=== PATIENT | female | born 1955 | race Caucasian/White ===

== ENCOUNTER → 2017-03-23 | Outpatient (CLI) | payer SELFPAY | LOC: COL.VAS 03-20 13:15 | DX: Z01.818 Encounter for other preprocedural examination (principal); Z88.2 Allergy status to sulfonamides; Z88.8 Allergy status to other drugs, medicaments and biological substances | CPT/HCPCS: G0365 ==

== ENCOUNTER → 2017-03-30 | Outpatient (REF) ==
[2017-03-30 07:48] LABS: CALCIUM 9.2 mg/dL (8.4-10.2); CREATININE, serum 3.14 mg/dL (0.52-1.25); POTASSIUM 4.6 mmol/L (3.4-5.0)
== END ==
LOC: ZMSC 07:35
PROVIDERS: Surgery
DX: Z01.89 Encounter for other specified special examinations (principal)

== ENCOUNTER 2017-06-13 10:03 | Outpatient (CLI) | payer OTHER ==
[~2017-06-13] VITALS: Ht 157.5 cm; Wt 53.6 kg
[2017-06-13] MEDS ORDERED: NORVASC 5MG5 MG/TAB PO (10:29)
[2017-06-13] MEDS ORDERED: RENA-VITE1 TAB PO (10:31)
[2017-06-13] MEDS ORDERED: NEURONTIN100 MG/CAP PO (10:32)
[2017-06-13] MEDS ORDERED: NORCO 325 MG-51 TAB PO (10:33)
[2017-06-13] MEDS ORDERED: LANTUS100 U/ML SQ (10:34)
[2017-06-13] MEDS ORDERED: HUMALOG100 U/ML SQ (10:35)
[2017-06-13 10:48] VITALS: BP 141/73; PULSE 68; TEMP 97.4
[2017-06-13 12:35] VITALS: BP 144/80; PULSE 69
[2017-06-13 13:30] VITALS: BP 125/72; PULSE 63; TEMP 97.6
[2017-06-13 14:08] VITALS: BP 142/73; PULSE 62; TEMP 97.6
== END 2017-06-13 14:25 | disposition home or self-care (01) ==
LOC: COL.CAR 10:03
DX: E11.22 Type 2 diabetes mellitus with diabetic chronic kidney disease (principal); N18.6 End stage renal disease; N12 Tubulo-interstitial nephritis, not specified as acute or chronic; D64.9 Anemia, unspecified; E87.1 Hypo-osmolality and hyponatremia; Z90.710 Acquired absence of both cervix and uterus; Z90.49 Acquired absence of other specified parts of digestive tract
CPT/HCPCS: J2250; J3010; Q9967

== ENCOUNTER → 2017-08-03 | Outpatient (CLI) | payer OTHER ==
[~2017-08-03] MED LIST: HUMALOG100 U/ML SQ; LANTUS100 U/ML SQ; NEURONTIN100 MG/CAP PO; NORCO 325 MG-51 TAB PO; NORVASC 5MG5 MG/TAB PO; RENA-VITE1 TAB PO
== END ==
LOC: COL.VAS 10:47
DX: N18.6 End stage renal disease (principal); T82.590A Other mechanical complication of surgically created arteriovenous fistula, initial encounter
CPT/HCPCS: G0365

== ENCOUNTER 2017-08-29 10:36 | Day surgery (SDC) | payer OTHER ==
[2017-08-29] VITALS (10 sets, daily range): BP systolic 101–154; BP diastolic 48–73; PULSE 49–76; TEMP 98.1
[~2017-08-29] VITALS: Ht 157.5 cm; Wt 53.7 kg
[~2017-08-29 10:36] MED LIST changes: +HUMALOG100 U/ML; -HUMALOG100 U/ML SQ
[2017-08-29] MEDS ORDERED: ROBINUL FORTE2 MG PO (11:00)
[2017-08-29] MEDS ORDERED: LASIX 40MG TABL40 MG PO (11:01)
[2017-08-29 11:40] LABS: CREATININE, serum 3.84 mg/dL (0.52-1.25); POTASSIUM 4.8 mmol/L (3.4-5.0)
[2017-08-29] MEDS ORDERED: NORCO 325 MG-51 TAB PO (14:58)
== END 2017-08-29 16:14 | disposition home or self-care (01) ==
LOC: SDCO 10:36
PROVIDERS: Surgery
DX: E11.22 Type 2 diabetes mellitus with diabetic chronic kidney disease (principal); I12.0 Hypertensive chronic kidney disease with stage 5 chronic kidney disease or end stage renal disease; N18.6 End stage renal disease; Z79.4 Long term (current) use of insulin; Z79.899 Other long term (current) drug therapy; Z79.82 Long term (current) use of aspirin
CPT/HCPCS: J0690; J1644; J2704; J3010

== ENCOUNTER 2017-12-21 20:29 | Inpatient (IN) | payer MEDICARE, OTHER ==
[~2017-12-21] VITALS: Ht 154.9 cm; Wt 58.0 kg
[~2017-12-21 20:29] MED LIST changes: +LASIX 40MG TABL40 MG PO; +ROBINUL FORTE2 MG PO
[2017-12-21 21:22] LABS: BASO % 0.2 % (0.0-2.0); EOS # 0.1 (0.0-0.7); EOS % 1.4 % (0-4.0); GRAN # 7.4 (1.4-6.5); GRAN % 87.8 % (42.2-75.2); LYMPH # 0.6 (1.2-3.4); LYMPH % 6.6 % (20.0-51.0); MEAN CELL VOLUME 98 fl (80.0-100.0); MEAN CORPUSCULAR HGB CONC 34 g/dl (33.0-37.0); MEAN PLATELET VOLUME 9.5 fl (7.4-10.4); MONO # 0.3 (0.1-0.6); MONO % 3.4 % (1.7-9.3); PLATELET COUNT 229 K/mm3 (130-400); RED BLOOD COUNT 2.08 M/mm3 (4.10-5.30); REDCELL DISTRIBUTION WIDTH-CV 14.9 % (11.5-14.5)
[2017-12-21 21:26] LABS: HEMATOCRIT 20.4 % (37.0-47.0); MEAN CORPUSCULAR HEMOGLOBIN 34 pg (27.0-31.0)
[2017-12-21 21:31] LABS: ALBUMIN 4.1 gm/dL (3.5-5.0); BILIRUBIN,TOTAL 0.3 mg/dL (0.0-1.0); CALCIUM 7.9 mg/dL (8.4-10.2); MAGNESIUM 2.1 mg/dL (1.6-2.3); PHOSPHOROUS 3.9 mg/dL (2.5-4.5); POTASSIUM 4.2 mmol/L (3.4-5.0); TOTAL PROTEIN 7.6 gm/dL (6.4-8.2)
[2017-12-21 21:43] LABS: CREATININE, serum 4.09 mg/dL (0.52-1.25); TROPONIN-I 0.046 ng/mL (0.000-0.034)
[2017-12-21 21:52] LABS: COLLECTION METHOD CATHETER
[2017-12-21 22:06] LABS: PH 7 (5-8); SQUAMOUS EPITHELIAL None Seen /hpf; URINE APPEARANCE Clear; URINE BACTERIA None Seen /hpf; URINE BILIRUBIN Negative (NEGATIVE); URINE BLOOD 1+ (NEGATIVE); URINE COLOR Yellow; URINE GLUCOSE 1+ (NEGATIVE); URINE KETONE Negative (NEGATIVE); URINE LEUKOCYTE ESTERASE 1+ (NEGATIVE); URINE NITRATE Negative (NEGATIVE); URINE PROTEIN(semi-quant) 3+ (NEGATIVE); URINE RBC 0-2 /hpf; URINE UROBILINOGEN Negative (NEGATIVE)
[2017-12-21 23:09] VITALS: BP 156/70; PULSE 93; TEMP 98.3
[2017-12-22] VITALS (7 sets, daily range): BP systolic 165–188; BP diastolic 64–76; PULSE 74–80; TEMP 98.5–98.8
[2017-12-22 08:28] LABS: BASO % 0.2 % (0.0-2.0); EOS # 0.2 (0.0-0.7); EOS % 2.5 % (0-4.0); GRAN # 6.4 (1.4-6.5); GRAN % 76.4 % (42.2-75.2); HEMATOCRIT 24.5 % (37.0-47.0); HEMOGLOBIN 8.3 g/dl (12.5-16.0); LYMPH # 1.3 (1.2-3.4); LYMPH % 15.6 % (20.0-51.0); MEAN CELL VOLUME 95 fl (80.0-100.0); MEAN CORPUSCULAR HEMOGLOBIN 32 pg (27.0-31.0); MEAN CORPUSCULAR HGB CONC 34 g/dl (33.0-37.0); MEAN PLATELET VOLUME 9.6 fl (7.4-10.4); MONO # 0.4 (0.1-0.6); MONO % 4.6 % (1.7-9.3); PLATELET COUNT 242 K/mm3 (130-400); RED BLOOD COUNT 2.57 M/mm3 (4.10-5.30); REDCELL DISTRIBUTION WIDTH-CV 17.1 % (11.5-14.5)
[2017-12-22 08:40] LABS: ALBUMIN 3.7 gm/dL (3.5-5.0); CALCIUM 7.5 mg/dL (8.4-10.2); PHOSPHOROUS 5.6 mg/dL (2.5-4.5); POTASSIUM 4.7 mmol/L (3.4-5.0)
[2017-12-22 08:47] LABS: CREATININE, serum 4.86 mg/dL (0.52-1.25)
[2017-12-23 03:41] VITALS: BP 173/59; PULSE 73; TEMP 98.3
[2017-12-23 07:55] VITALS: BP 170/69; PULSE 75; TEMP 98.9
[2017-12-23 11:32] VITALS: BP 169/70; PULSE 70; TEMP 98.7
[2017-12-23 13:33] LABS: ALBUMIN 3.4 gm/dL (3.5-5.0); CALCIUM 7.9 mg/dL (8.4-10.2); CREATININE, serum 3.09 mg/dL (0.52-1.25); PHOSPHOROUS 3.8 mg/dL (2.5-4.5); POTASSIUM 3.9 mmol/L (3.4-5.0)
[2017-12-23 15:46] VITALS: BP 159/75; PULSE 89
[2017-12-23] MEDS ORDERED: PLAVIX 75MG TAB75 MG PO (16:06)
== END 2017-12-23 16:50 | disposition home or self-care (01) | DRG 64 ==
LOC: COL.ER 20:29 → SURG 22:42
PROVIDERS: Internal Medicine Nephrology; Physician Assistant
PROC: 5A1D70Z Performance of Urinary Filtration, Intermittent, Less than 6 Hours Per Day (ICD-10-PCS; principal; 2017-12-22)
PROC: 5A1D70Z Performance of Urinary Filtration, Intermittent, Less than 6 Hours Per Day (ICD-10-PCS; 2017-12-23)
DX: I63.9 Cerebral infarction, unspecified (principal); N18.6 End stage renal disease; I12.0 Hypertensive chronic kidney disease with stage 5 chronic kidney disease or end stage renal disease; D62 Acute posthemorrhagic anemia; E11.22 Type 2 diabetes mellitus with diabetic chronic kidney disease; Z99.2 Dependence on renal dialysis; E11.42 Type 2 diabetes mellitus with diabetic polyneuropathy; E11.319 Type 2 diabetes mellitus with unspecified diabetic retinopathy without macular edema; E11.21 Type 2 diabetes mellitus with diabetic nephropathy; D63.1 Anemia in chronic kidney disease; Z79.4 Long term (current) use of insulin; I69.398 Other sequelae of cerebral infarction; H53.9 Unspecified visual disturbance
CPT/HCPCS: J1815; J2405; P9016